=== PATIENT | male | born 1995 | race Two or more races ===

== ENCOUNTER 2019-04-24 21:20 | Emergency (ER) | payer OTHER ==
[~2019-04-24] VITALS: Ht 185.4 cm; Wt 104.1 kg
[2019-04-24 21:26] VITALS: BP 135/85
[2019-04-24] MEDS ORDERED: LIDOCAINE-MPF 1%, 5ML ONE (21:43)
[2019-04-24] MEDS ORDERED: AZITHROMYCIN 500 MG TABLET ONE (21:43)
[2019-04-24] MEDS ORDERED: CEFTRIAXONE 1,000 MG ONE (21:43)
--- NOTE | 2019-04-24 21:50 | NUR ---
PT AMBULATED TO BR WITHOUT DIFFICULTY. INSTRUCTED ON CLEAN CATCH URINE SAMPLE.
[2019-04-24] MEDS ORDERED: AZITHROMYCIN 500 MG TABLET PO ONE (22:00)
[2019-04-24] MEDS ORDERED: CEFTRIAXONE 1,000 MG IM ONE (22:00)
--- NOTE | 2019-04-24 22:13 | NUR ---
PT MEDICATED PER ORDERS. D/C INSTRUCTIONS & F/U APPT RV'WD WITH PT, HE VERBALIZES UNDERSTANDING. AMBULATED OUT OF ED WITHOUT DIFFICULTY.
[2019-04-24 22:15] LABS: MICROSCOPIC AUTO
[2019-04-24 22:19] LABS: CULTURE INDICATED? YES
== END 2019-04-24 22:17 | disposition home or self-care (01) ==
LOC: ED 22:00
DX: A64 Unspecified sexually transmitted disease (principal)
CPT/HCPCS: 81001; 87086; 87491; 87591; 96372; 99283; J0696

== ENCOUNTER 2020-01-22 10:33 | Emergency (ER) | payer OTHER ==
[~2020-01-22] VITALS: Ht 185.4 cm; Wt 98.2 kg
[2020-01-22 10:39] VITALS: BP 137/86
--- NOTE | 2020-01-22 10:49 | NUR ---
CV RN: PT TO ROOM FROM M[facility] SALGADO
--- NOTE | 2020-01-22 10:53 | NUR ---
BREAK RN: PT AMBULATORY TO ROOM 25 W/ C/O YELLOW PENILE DISCHARGE STARTED LAST NIGHT WELL LOWER PELVIC PAIN. PT STATES IT STARTED LAST NIGHT AND WAS FINE THROUGHOUT THE DAY. PT STATES HE IS CONCERNED IT COULD BE AN STD. 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 PT PROVIDED UA SAMPLE. PT RESTING ON [facility]. MONITORS APPLIED.
--- NOTE | 2020-01-22 10:58 | NUR ---
BREAK RN: ERP DR. GOMEZ AT BEDSIDE.
[2020-01-22] MEDS ORDERED: CEFTRIAXONE 250 MG IM ONE (11:00)
[2020-01-22] MEDS ORDERED: AZITHROMYCIN 500 MG TABLET PO ONE (11:00)
[2020-01-22] MEDS ORDERED: CEFTRIAXONE 250 MG ONE (11:06)
[2020-01-22] MEDS ORDERED: AZITHROMYCIN 250 MG TABLET ONE (11:07)
--- NOTE | 2020-01-22 11:14 | NUR ---
MEDS ADMIN PER AUG.
--- NOTE | 2020-01-22 11:50 | NUR ---
BREAK RN: ATTEMPTED TO PROVIDE PT W/ DC INFORMATION. PT NOT IN ROOM. GOWN LEFT ON [place]. NO PERSONAL BELONGINGS. PT NOT ON UNIT. DC PAPERS LEFT W/ MARKETING PR INTERN.
== END 2020-01-22 11:51 | disposition left against medical advice (07) ==
LOC: ED 11:10
DX: A56.01 Chlamydial cystitis and urethritis (principal); A54.01 Gonococcal cystitis and urethritis, unspecified
CPT/HCPCS: 87491; 87591; 96372; 99283; J0696